=== PATIENT | female | born 1965 | race Caucasian/White ===

== ENCOUNTER 2017-11-18 22:29 | Inpatient (IN) | payer MEDICAID ==
[~2017-11-18] VITALS: Ht 162.6 cm; Wt 66.4 kg
[2017-11-18] MEDS ORDERED: ALBUTEROL SUL 2.5 MG/3 ML SOLN INH (22:41)
--- NOTE | 2017-11-18 22:46 | NUR ---
DR. MULLER AT BEDSIDE FOR MSE.
[2017-11-18] MEDS ORDERED: MORPHINE SULFATE 4 MG/1 ML DISP.SYRIN ONE (22:52)
[2017-11-18] MEDS ORDERED: ONDANSETRON 4 MG/2 ML VIAL ONE (22:52)
[2017-11-18] MEDS ORDERED: MORPHINE SULFATE 4 MG/1 ML DISP.SYRIN IM ONE (23:00)
[2017-11-18] MEDS ORDERED: ONDANSETRON IV *ER 4 MG/2 ML VIAL IM ONE (23:00)
[2017-11-19] MEDS ORDERED: MORPHINE SULFATE 2 MG/1 ML DISP.SYRIN IV ONE
[2017-11-19] MEDS ORDERED: IV NORMAL SALINE 1000 ML BAG IV ONE
[2017-11-19] MEDS ORDERED: ONDANSETRON 4 MG/2 ML VIAL IV ONE
[2017-11-19 00:23] LABS: BASOPHILS # (AUTO) 0.1 K/uL (0.0-8.0); BASOPHILS % (AUTO) 1.1 % (0.0-2.0); EOSINOPHILS # (AUTO) 0.5 K/uL (0.0-0.7); EOSINOPHILS % (AUTO) 5.1 % (0.0-7.0); HEMATOCRIT 42.7 % (31.2-41.9); HEMOGLOBIN 14.1 g/dL (10.9-14.3); LYMPHOCYTES % (AUTO) 21.9 % (20.5-51.5); MEAN CORPUSCULAR HEMOGLOBIN 29.2 uug (24.7-32.8); MEAN CORPUSCULAR HGB CONC 33 g/dL (32.3-35.6); MEAN CORPUSCULAR VOLUME 88.5 fL (75.5-95.3); MONOCYTES % (AUTO) 10.6 % (0.0-11.0); NEUTROPHILS # (AUTO) 5.7 K/uL (1.8-8.9); NEUTROPHILS % (AUTO) 61.3 % (38.5-71.5); PLATELET COUNT (AUTO) 211 K/uL (179-408); RED BLOOD CELL COUNT(AUTO) 4.83 MIL/uL (3.63-4.92); WHITE BLOOD COUNT (AUTO) 9.2 K/uL (3.8-11.8)
[2017-11-19] MEDS ORDERED: MORPHINE SULFATE 4 MG/1 ML DISP.SYRIN ONE (00:23)
[2017-11-19] MEDS ORDERED: ONDANSETRON 4 MG/2 ML VIAL ONE (00:23)
[2017-11-19 00:41] LABS: BILIRUBIN,DIRECT 0.1 mg/dL (0.0-0.2); BILIRUBIN,TOTAL 0.4 mg/dL (0.2-1.0); CREATININE 0.7 mg/dL (0.6-1.3); POTASSIUM 4.1 mmol/L (3.5-5.1); TOTAL PROTEIN, SERUM 6.9 g/dL (6.4-8.2)
--- NOTE | 2017-11-19 01:30 | NUR ---
Pt. admitted to m/s , under care of Dr. BLANCO Belongs List completed.
[2017-11-19 01:37] VITALS: BP 137/76
--- NOTE | 2017-11-19 02:00 | NUR ---
Received pt in unit and observed to be sleeping at this time, pt remains arousable via tactile and verbal stimuli. No s/s of acute distress noted at this time. Rectal prolapse observed to have mild bleeding, light pink color noted. Vital signs WNL. Temperature 98.0, BP 137/76, HR 97, RR 18, 96% SpO2 with 2L NC. Pertinent assessments done. paged for orders. Safe environment implemented. Call light within reach. Will continue to monitor closely.
[2017-11-19 04:52] VITALS: BP 123/83
[2017-11-19] MEDS ORDERED: IV NS 1000 ML 1,000 ML IV PRN (06:10)
[2017-11-19] MEDS ORDERED: ONDANSETRON 4 MG/2 ML VIAL IV PRN (06:15)
[2017-11-19] MEDS ORDERED: ACETAMINOPHEN 325 MG TABLET PO PRN (06:15)
[2017-11-19] MEDS ORDERED: MAGNESIUM HYDROXIDE 30 ML LIQUID UDC PO PRN (06:15)
[2017-11-19] MEDS ORDERED: ZOLPIDEM 5 MG TABLET PO PRN (06:15)
[2017-11-19] MEDS ORDERED: Z GUARD REMEDY PASTE 57 GM TUBE TOP PRN (06:15)
[2017-11-19] MEDS ORDERED: HYDROMORPHONE 1 MG/1 ML DISP.SYRIN IV PRN ×2 (06:15→07:45)
--- NOTE | 2017-11-19 06:30 | NUR ---
Pt made aware of plan of care. No s/s of acute distress at this time. AAO x4. Remains easily arousable via tactile and verbal stimuli. Will endorse accordingly. Safe environment at all times
[2017-11-19 06:48] LABS: BASOPHILS % (AUTO) 0.7 % (0.0-2.0); EOSINOPHILS # (AUTO) 0.5 K/uL (0.0-0.7); EOSINOPHILS % (AUTO) 6.4 % (0.0-7.0); HEMATOCRIT 41.5 % (31.2-41.9); HEMOGLOBIN 13.7 g/dL (10.9-14.3); LYMPHOCYTES # (AUTO) 1.6 K/uL (20.0-40.0); LYMPHOCYTES % (AUTO) 22.9 % (20.5-51.5); MEAN CORPUSCULAR HEMOGLOBIN 29.4 uug (24.7-32.8); MEAN CORPUSCULAR HGB CONC 33 g/dL (32.3-35.6); MEAN CORPUSCULAR VOLUME 89.6 fL (75.5-95.3); MONOCYTES # (AUTO) 0.8 K/uL (2.0-10.0); NEUTROPHILS # (AUTO) 4.2 K/uL (1.8-8.9); PLATELET COUNT (AUTO) 196 K/uL (179-408); RED BLOOD CELL COUNT(AUTO) 4.64 MIL/uL (3.63-4.92); WHITE BLOOD COUNT (AUTO) 7.1 K/uL (3.8-11.8)
[2017-11-19 07:02] LABS: BILIRUBIN,TOTAL 0.6 mg/dL (0.2-1.0); CREATININE 0.6 mg/dL (0.6-1.3); POTASSIUM 4.4 mmol/L (3.5-5.1); TOTAL PROTEIN, SERUM 5.9 g/dL (6.4-8.2)
--- NOTE | 2017-11-19 11:35 | NUR ---
Staff informed RN regarding patient smoking in the room. Patient informed regarding non-smoking facility, pt verbalized understanding. Patient surrendered opened cigarette pack but refused to turn over cigarette talend etl developer stating "it is a special talend etl developer and was given to me as a gift, I will be very upset if it gets lost". Explained to the patient that her talend etl developer and cigarette pack will be kept in a locker and will be given back to her upon discharge. Patient verbalized understanding but refuses to turn over her talend etl developer. Will continue to monitor. Safety measures in place.
[2017-11-19 11:36] VITALS: BP 141/84
--- NOTE | 2017-11-19 11:45 | NUR ---
Patient teachings regarding smoking cessation provided, patient verbalized understanding, need reinforcement and motivation.
[2017-11-19 12:05] LABS: *BILIRUBIN,URIN NEGATIVE (NEGATIVE); *BLOOD, URINE Trace-lysed (NEGATIVE); *CLARITY,URINE CLEAR (CLEAR); *COLOR,URINE YELLOW (YELLOW); *KETONES,URINE NEGATIVE (NEGATIVE); *PROTEIN,URINE NEGATIVE (NEGATIVE); *UROBILINOGEN,URINE 0.2 E.U./dl (NORMAL); LEUKOCYTE ESTERASE ,URINE 2+ (NEGATIVE); NITRITE, URINE NEGATIVE (NEGATIVE); PH,URINE 5.5 (5.0-8.0); UGLUCOSE NEGATIVE (NEGATIVE)
[2017-11-19 12:37] LABS: BACTERIA,URINE FEW /HPF (NONE SEEN); MUCUS,URINE MODERATE /LPF (0-FEW); SQUAMOUS EPITHELIAL CELL,UR FEW /HPF (NONE SEEN)
[2017-11-19] MEDS ORDERED: IPRATROPIUM BROMIDE 0.5 MG/2.5 ML NEBU NEB PRN (14:15)
[2017-11-19] MEDS ORDERED: ALBUTEROL SULFATE 2.5 MG/3 ML NEBU NEB PRN (14:15)
[2017-11-19] MEDS: IV D5/ 0.9% NACL 1,000 ML IV PRN (15:11)
[2017-11-19] MEDS: NICOTINE 14 MG/24HR PATCH TD SCH (15:11)
[2017-11-19] MEDS: CEFTRIAXONE 1 G in IV DEXTROSE 5% 50 ML IV SCH (15:19)
--- NOTE | 2017-11-19 15:30 | NUR ---
Swab nares for MRSA sent to lab.
[2017-11-19 15:45] VITALS: BP 143/84
--- NOTE | 2017-11-19 18:03 | NUR ---
Patient mostly asleep throughout the shift, easily arousable, in no distress. Mass protruding through the patient's anus, no bleeding or ulcer noted. Patient no c/o of pain, SOB. Patient remains NPO as ordered. IVF running, no infiltration noted. IV antibiotics administered as ordered, no adverse reaction. Safety measures in place.
--- NOTE | 2017-11-19 20:00 | NUR ---
Observed to be crying in room and complaining of dry mouth. Pt provided with relaxation techniques, cooling measures and lemon glycerine swab. No s/s of acute distress noted at this time. Keep NPO. Will continue to monitor closely.
[2017-11-19 20:04] VITALS: BP 131/83
[2017-11-19] MEDS: MORPHINE SULFATE 2 MG/1 ML DISP.SYRIN IV PRN (23:55)
[2017-11-20] MEDS: IV D5/ 0.9% NACL 1,000 ML IV PRN ×2 (01:54→12:15)
--- NOTE | 2017-11-20 03:20 | NUR ---
DR CARERRA IN ROOM FOR CONSULT AT THIS TIME RECEIVED ORDERS TO ADVANCE DIET TO CLEAR LIQUIDS
[2017-11-20] MEDS ORDERED: SENNOSIDES/DOCUSATE SODIUM TABLET PO PRN (04:00)
--- NOTE | 2017-11-20 04:15 | NUR ---
Received pt lying in bed, asleep at this time. In no acute distress. No signs or symptoms of pain or discomfort noted. Continue to monitor.
[2017-11-20 04:36] VITALS: BP 120/81
[2017-11-20] MEDS: MORPHINE SULFATE 2 MG/1 ML DISP.SYRIN IV PRN ×4 (05:01→21:23)
--- NOTE | 2017-11-20 06:16 | NUR ---
PATIENT AOX4. MORPHINE PRN GIVEN FOR COMPLAIN OF RECTAL PAIN AND EFFECTIVE. O2 AT 2LPM VIA NC IN PLACE. O2 SAT AT 96%. OCCASIONAL PRODUCTIVE COUGH AND ABLE TO EXPECTORATE PHLEGM. IN NO ACUTE DISTRESS. IV SITE ON LFA INTACT AND PATENT. IVF INFUSING. SAFETY MEASURE MAINTAINED AND CALL [facility] WITHIN REACH.
[2017-11-20 06:40] LABS: BASOPHILS % (AUTO) 0.8 % (0.0-2.0); EOSINOPHILS # (AUTO) 0.3 K/uL (0.0-0.7); EOSINOPHILS % (AUTO) 4.7 % (0.0-7.0); HEMATOCRIT 39.1 % (31.2-41.9); LYMPHOCYTES # (AUTO) 1.2 K/uL (20.0-40.0); LYMPHOCYTES % (AUTO) 20.3 % (20.5-51.5); MEAN CORPUSCULAR HEMOGLOBIN 29.3 uug (24.7-32.8); MEAN CORPUSCULAR HGB CONC 33 g/dL (32.3-35.6); MEAN CORPUSCULAR VOLUME 88.4 fL (75.5-95.3); MONOCYTES # (AUTO) 0.6 K/uL (2.0-10.0); MONOCYTES % (AUTO) 10.5 % (0.0-11.0); NEUTROPHILS # (AUTO) 3.8 K/uL (1.8-8.9); NEUTROPHILS % (AUTO) 63.7 % (38.5-71.5); PLATELET COUNT (AUTO) 172 K/uL (179-408); RED BLOOD CELL COUNT(AUTO) 4.42 MIL/uL (3.63-4.92); WHITE BLOOD COUNT (AUTO) 5.9 K/uL (3.8-11.8)
[2017-11-20 06:49] LABS: CREATININE 0.6 mg/dL (0.6-1.3); MAGNESIUM 2.1 mg/dL (1.8-2.4); PHOSPHOROUS 3.6 mg/dL (2.5-4.9); POTASSIUM 3.8 mmol/L (3.5-5.1)
[2017-11-20 07:20] LABS: THYROID STIMULATING HORMONE 1.038 mIU/mL (0.358-3.740)
[2017-11-20] MEDS ORDERED: GOLYTELY 4000 ML BOTTLE PO ONE (08:00)
[2017-11-20] MEDS: PANTOPRAZOLE SODIUM 40 MG VIAL IV SCH (08:23)
[2017-11-20] MEDS: NICOTINE 14 MG/24HR PATCH TD SCH (08:23)
[2017-11-20] MEDS: HYDROCODONE/APAP 5-325MG TABLET PO PRN ×2 (08:27→18:34)
--- NOTE | 2017-11-20 11:39 | NUR ---
Unable to place orders for Epsom salt, informed charge nurse and Pharmacists. Orders for sitz bath with Epsom salt not carried out due to Epsom salt needs to be ordered by pharmacy and will arrive tomorrow. Spoke with Pharmacist and was advised to call MD and suggest a sitz bath without Epsom salt for today and continue with original orders tomorrow. Message was left at the office of Dr Desean Doran. Portable sitz bath from [place] arrived and placed in the pt's room
[2017-11-20 11:45] VITALS: BP 128/75
[2017-11-20] MEDS: CEFTRIAXONE 1 G in IV DEXTROSE 5% 50 ML IV SCH (14:00)
--- NOTE | 2017-11-20 15:10 | NUR ---
Sitz bath as tolerated by the pt done, salt placed on hemorrhoids. Pt states she has not had the urge for BM today.
--- NOTE | 2017-11-20 15:22 | NUR ---
Second called placed to Dr. Anton to verify orders for Epsom salt tomorrow, pharmacy needs to place orders
[2017-11-20 15:50] VITALS: BP 128/77
--- NOTE | 2017-11-20 15:59 | NUR ---
Dr Anton called back and verified orders for Epsom salt to be ordered by pharmacy. Pharmacist aware and will order Epsom salt. Pharmacist aware of being unable to place orders for Epsom salt and she will try to order it, TO
[2017-11-20] MEDS: HYDROCORTISONE 2.5 % RECTAL CREAM 28.35 GM TUBE RC SCH (18:27)
--- NOTE | 2017-11-20 19:08 | NUR ---
Pt has been compliant with medications and nursing care. No immediate s/s of SOB, pain, distress or discomfort
[2017-11-20 20:00] VITALS: BP 131/84
--- NOTE | 2017-11-20 20:00 | NUR ---
PATIENT IS AWAKE IN BED AAOX3, DENIES PAIN OR ANY DISTRESS AT PRESENT, SAFETY AND COMFORT MEASURES IN PLACE, CALL LIGHT LEFT WITHIN PATIENT'S REACH.
[2017-11-21] MEDS: IV D5/ 0.9% NACL 1,000 ML IV PRN ×2 (02:00→14:16)
[2017-11-21] MEDS: MORPHINE SULFATE 2 MG/1 ML DISP.SYRIN IV PRN ×3 (02:58→13:03)
[2017-11-21 05:09] VITALS: BP 149/89
--- NOTE | 2017-11-21 06:39 | NUR ---
PATIENT SLEPT WELL THROUGH THE SHIFT, NO ACUTE DISTRESS OR C/O PAIN AT PRESENT. PAIN MEDS GIVEN REQUESTED BY PATIENT. PATIENT KEPT COMFORTABLE. SAFETY MEASURES MAINTAINED AT ALL TIMES
[2017-11-21 06:58] LABS: BASOPHILS # (AUTO) 0.1 K/uL (0.0-8.0); BASOPHILS % (AUTO) 0.9 % (0.0-2.0); EOSINOPHILS # (AUTO) 0.4 K/uL (0.0-0.7); EOSINOPHILS % (AUTO) 5.6 % (0.0-7.0); HEMATOCRIT 41.4 % (31.2-41.9); HEMOGLOBIN 13.7 g/dL (10.9-14.3); LYMPHOCYTES # (AUTO) 1.6 K/uL (20.0-40.0); LYMPHOCYTES % (AUTO) 23.9 % (20.5-51.5); MEAN CORPUSCULAR HEMOGLOBIN 29.1 uug (24.7-32.8); MEAN CORPUSCULAR HGB CONC 33 g/dL (32.3-35.6); MEAN CORPUSCULAR VOLUME 88.1 fL (75.5-95.3); MONOCYTES # (AUTO) 0.6 K/uL (2.0-10.0); MONOCYTES % (AUTO) 8.9 % (0.0-11.0); NEUTROPHILS % (AUTO) 60.7 % (38.5-71.5); PLATELET COUNT (AUTO) 153 K/uL (179-408); WHITE BLOOD COUNT (AUTO) 6.6 K/uL (3.8-11.8)
[2017-11-21 07:08] LABS: BILIRUBIN,TOTAL 0.3 mg/dL (0.2-1.0); CREATININE 0.5 mg/dL (0.6-1.3); MAGNESIUM 1.8 mg/dL (1.8-2.4); POTASSIUM 3.7 mmol/L (3.5-5.1); TOTAL PROTEIN, SERUM 5.9 g/dL (6.4-8.2)
--- NOTE | 2017-11-21 07:41 | NUR ---
RECEIVED PT ASLEEP ON BED. NO SIGNS OF RESPIRATORY DISTRESS NOTED. SAFETY MEASURE INITIATED. WILL CONTINUE TO MONITOR
[2017-11-21] MEDS: NICOTINE 14 MG/24HR PATCH TD SCH (08:39)
[2017-11-21] MEDS: PANTOPRAZOLE SODIUM 40 MG VIAL IV SCH (08:39)
[2017-11-21] MEDS: HYDROCORTISONE 2.5 % RECTAL CREAM 28.35 GM TUBE RC SCH (08:40)
[2017-11-21] MEDS ORDERED: MAGNESIUM SULFATE 454 GM JAR TP PRN (11:00)
[2017-11-21 11:03] VITALS: BP 139/88
[2017-11-21] MEDS ORDERED: MIRALAX 17 GM POWD.PACK PO SCH (14:00)
[2017-11-21] MEDS: CEFTRIAXONE 1 G in IV DEXTROSE 5% 50 ML IV SCH (14:19)
[2017-11-21 15:13] VITALS: BP 143/98
--- NOTE | 2017-11-21 15:45 | NUR ---
Pt. left AMA notified Marcel ELOY aware. . Pt signed AMA. Pt is in no acute distress. Belongings and valuables given to pt. PT signed valuable form. IV d/c. Offered pt to have her medical records sent to her PMD. pt states she does not have one. Instructed pt. to establish medical care and follow up with primary doctor KARMA and . Pt verbalized understanding.
[2017-11-22] MEDS ORDERED: PANTOPRAZOLE SODIUM 40 MG TABLET.DR PO SCH (07:00)
== END 2017-11-21 15:45 | disposition left against medical advice (07) | DRG 254 ==
LOC: ER 22:30 → MED 11-19 00:57
PROVIDERS: ADMIT Internal Medicine; ATTEND Nurse Practitioner Acute Care
DX: K62.3 Rectal prolapse (principal); D69.6 Thrombocytopenia, unspecified; E27.8 Other specified disorders of adrenal gland; K85.20 Alcohol induced acute pancreatitis without necrosis or infection; E44.1 Mild protein-calorie malnutrition; E88.09 Other disorders of plasma-protein metabolism, not elsewhere classified; K64.3 Fourth degree hemorrhoids; K59.00 Constipation, unspecified; E83.42 Hypomagnesemia; N39.0 Urinary tract infection, site not specified; Z68.25 Body mass index [BMI] 25.0-25.9, adult; E83.39 Other disorders of phosphorus metabolism; K57.30 Diverticulosis of large intestine without perforation or abscess without bleeding; Z90.81 Acquired absence of spleen; K44.9 Diaphragmatic hernia without obstruction or gangrene; K40.90 Unilateral inguinal hernia, without obstruction or gangrene, not specified as recurrent; F10.10 Alcohol abuse, uncomplicated; Y90.9 Presence of alcohol in blood, level not specified; F17.210 Nicotine dependence, cigarettes, uncomplicated
CPT/HCPCS: 36415; 71045; 83690; 83735; 84100; 84443; 85025; 87086; 93005; 94664; A4663; C9113; J0696; J2270; J2405; J3590; J7030; J7042; J7060

== ENCOUNTER 2018-05-20 03:56 | Emergency (ER) | payer MEDICAID, OTHER ==
[~2018-05-20] VITALS: Ht 162.6 cm; Wt 63.5 kg
[~2018-05-20 03:56] MED LIST: ALBUTEROL SUL 2.5 MG/3 ML SOLN INH
--- NOTE | 2018-05-20 04:22 | NUR ---
Patient discharged to home in stable conditon. Written and verbal after care instructions given. Patient verbalizes understanding of instructions.
== END 2018-05-20 04:23 | disposition home or self-care (01) ==
LOC: ER 03:58
DX: J06.9 Acute upper respiratory infection, unspecified (principal); J45.909 Unspecified asthma, uncomplicated; F17.200 Nicotine dependence, unspecified, uncomplicated; F12.10 Cannabis abuse, uncomplicated; F15.10 Other stimulant abuse, uncomplicated; Z79.899 Other long term (current) drug therapy
CPT/HCPCS: A4663

== ENCOUNTER 2018-10-15 00:20 | Emergency (ER) | payer SELFPAY ==
[~2018-10-15] VITALS: Ht 162.6 cm; Wt 65.8 kg
--- NOTE | 2018-10-15 00:30 | NUR ---
Patient came in for c/o sob x2 days with congestion. Speech is clear, speaks in complete sentences. No neuro deficits noted. Wheezing noted in all lobes. No cardiovascular distress noted, all pulses palpable. No GI/ distress.
[2018-10-15] MEDS ORDERED: ALBUTEROL SULFATE 2.5 MG/3 ML NEBU ONE (00:44)
[2018-10-15] MEDS ORDERED: IPRATROPIUM BROMIDE 0.5 MG/2.5 ML NEBU ONE (00:44)
[2018-10-15] MEDS ORDERED: IPRATROPIUM BROMIDE 0.5 MG/2.5 ML NEBU NEB ONE (00:45)
[2018-10-15] MEDS ORDERED: ALBUTEROL SULFATE 2.5 MG/3 ML NEBU NEB ONE (00:45)
--- NOTE | 2018-10-15 01:07 | NUR ---
Patient discharged to home in stable conditon. Written and verbal after care instructions given. Patient verbalizes understanding of instructions. Patient ambulated with stable gait.
[2018-10-15 01:08] VITALS: BP 135/85
== END 2018-10-15 01:08 | disposition home or self-care (01) ==
LOC: ER 00:22
DX: J98.01 Acute bronchospasm (principal); J45.909 Unspecified asthma, uncomplicated; F12.10 Cannabis abuse, uncomplicated; F15.10 Other stimulant abuse, uncomplicated; F17.200 Nicotine dependence, unspecified, uncomplicated; Z79.899 Other long term (current) drug therapy
CPT/HCPCS: A4663; J3590

== ENCOUNTER 2019-01-07 03:55 | Emergency (ER) | payer MEDICAID ==
[~2019-01-07] VITALS: Ht 162.6 cm; Wt 56.7 kg
[2019-01-07] MEDS ORDERED: ALBU18HF2 IH (04:05)
--- NOTE | 2019-01-07 04:08 | NUR ---
Dr. Collado at bedside for MSE.
--- NOTE | 2019-01-07 04:20 | NUR ---
Respiratory at bedside.
[2019-01-07] MEDS ORDERED: ALBUTEROL SULFATE 2.5 MG/3 ML NEBU ONE ×2 (04:24→05:43)
[2019-01-07] MEDS ORDERED: FUROSEMIDE 20 MG/2 ML VIAL IV ONE (04:30)
[2019-01-07] MEDS ORDERED: NITROGLYCERIN OINT 1 GM PACKET TP ONE ×2 (04:30→04:37)
[2019-01-07] MEDS ORDERED: ALBUTEROL SULFATE 2.5 MG/3 ML NEBU NEB ONE ×2 (04:30→05:45)
[2019-01-07] MEDS ORDERED: FUROSEMIDE 20 MG/2 ML VIAL ONE (04:37)
[2019-01-07 04:44] LABS: BASOPHILS # (AUTO) 0.1 K/uL (0.0-8.0); BASOPHILS % (AUTO) 1.3 % (0.0-2.0); EOSINOPHILS # (AUTO) 0.4 K/uL (0.0-0.7); EOSINOPHILS % (AUTO) 5.7 % (0.0-7.0); HEMATOCRIT 47.6 % (31.2-41.9); HEMOGLOBIN 16.3 g/dL (10.9-14.3); LYMPHOCYTES # (AUTO) 1.8 K/uL (20.0-40.0); LYMPHOCYTES % (AUTO) 25.8 % (20.5-51.5); MEAN CORPUSCULAR HEMOGLOBIN 29.5 uug (24.7-32.8); MEAN CORPUSCULAR HGB CONC 34 g/dL (32.3-35.6); MEAN CORPUSCULAR VOLUME 86.2 fL (75.5-95.3); MONOCYTES # (AUTO) 0.6 K/uL (2.0-10.0); MONOCYTES % (AUTO) 7.9 % (0.0-11.0); NEUTROPHILS # (AUTO) 4.2 K/uL (1.8-8.9); NEUTROPHILS % (AUTO) 59.3 % (38.5-71.5); PLATELET COUNT (AUTO) 246 K/uL (179-408); RED BLOOD CELL COUNT(AUTO) 5.52 MIL/uL (3.63-4.92)
[2019-01-07 04:53] LABS: CREATININE 0.9 mg/dL (0.6-1.3); POTASSIUM 4.4 mmol/L (3.5-5.1)
--- NOTE | 2019-01-07 04:55 | NUR ---
Xray at bedside.
--- NOTE | 2019-01-07 05:00 | NUR ---
After breathing treatment, patient's O2 sat 89% on room air. Patient states chest tightness is gone but feels very tired. MD notified. Placed patient on O2 2L/min via nasal cannula.
[2019-01-07 05:05] LABS: BILIRUBIN,DIRECT 0.1 mg/dL (0.0-0.2); BILIRUBIN,TOTAL 0.6 mg/dL (0.2-1.0); TOTAL PROTEIN, SERUM 7.6 g/dL (6.4-8.2)
--- NOTE | 2019-01-07 05:34 | NUR ---
Pt provided urine sample, sent to lab.
[2019-01-07] MEDS ORDERED: methylPREDNISolone SOD SUCC 125 MG/2 ML VIAL ONE (05:40)
[2019-01-07 05:41] LABS: *BILIRUBIN,URIN NEGATIVE (NEGATIVE); *BLOOD, URINE NEGATIVE (NEGATIVE); *CLARITY,URINE CLEAR (CLEAR); *COLOR,URINE STRAW (YELLOW); *KETONES,URINE NEGATIVE (NEGATIVE); *UROBILINOGEN,URINE 0.2 E.U./dl (NORMAL); LEUKOCYTE ESTERASE ,URINE NEGATIVE (NEGATIVE); NITRITE, URINE NEGATIVE (NEGATIVE); PH,URINE 6.5 (5.0-8.0); UGLUCOSE NEGATIVE (NEGATIVE)
[2019-01-07 05:42] LABS: *URINE HCG, QUAL NEGATIVE (NEGATIVE)
[2019-01-07] MEDS ORDERED: methylPREDNISolone SOD SUCC 125 MG/2 ML VIAL IV ONE (05:45)
[2019-01-07 05:53] LABS: *AMPHETAMINE, URINE POSITIVE (NEGATIVE); *BARBITURATE, URINE NEGATIVE (NEGATIVE); *CANNABINOID, URINE NEGATIVE (NEGATIVE); *COCCAINE, URINE NEGATIVE (NEGATIVE); *OPIATE, URINE NEGATIVE (NEGATIVE); *PHENCYCLIDINE SCREEN,URINE NEGATIVE (NEGATIVE)
--- NOTE | 2019-01-07 06:32 | NUR ---
Patient discharged to home in stable conditon. Written and verbal after care instructions given. Patient verbalizes understanding of instructions. Pt ambulated out of ER with steady gait, no acute signs of distress, VSS, all belongings taken, IV site discontinued.
[2019-01-07 06:34] VITALS: BP 145/96
== END 2019-01-07 06:40 | disposition home or self-care (01) ==
LOC: ER 03:57
DX: J45.909 Unspecified asthma, uncomplicated (principal); R60.9 Edema, unspecified; F15.10 Other stimulant abuse, uncomplicated; F12.10 Cannabis abuse, uncomplicated; F17.290 Nicotine dependence, other tobacco product, uncomplicated; Z71.6 Tobacco abuse counseling; Z79.899 Other long term (current) drug therapy
CPT/HCPCS: 36415; 71045; 80048; 80076; 80307; 81001; 83880; 84484; 84703; 85025; 85379; 93005; 94640 ×2; 96374; 96375; 99284; 99406; J1940; J2930; 70030-TC; A4663

== ENCOUNTER 2019-02-24 23:03 | Emergency (ER) | payer MEDICAID, OTHER ==
[~2019-02-24] VITALS: Ht 162.6 cm; Wt 61.2 kg
[~2019-02-24 23:03] MED LIST changes: +ALBU18HF2 IH
--- NOTE | 2019-02-24 23:35 | NUR ---
DR. SANDOVAL AT BEDSIDE FOR MSE.
[2019-02-24] MEDS ORDERED: ALBUTEROL SULFATE 2.5 MG/3 ML NEBU NEB ONE (23:45)
[2019-02-24] MEDS ORDERED: predniSONE 20 MG TABLET PO ONE (23:45)
[2019-02-24] MEDS ORDERED: IPRATROPIUM BROMIDE 0.5 MG/2.5 ML NEBU NEB ONE (23:45)
[2019-02-24] MEDS ORDERED: predniSONE 20 MG TABLET ONE (23:49)
[2019-02-24] MEDS ORDERED: IPRATROPIUM BROMIDE 0.5 MG/2.5 ML NEBU ONE (23:58)
[2019-02-24] MEDS ORDERED: ALBUTEROL SULFATE 2.5 MG/3 ML NEBU ONE (23:58)
[2019-02-25] MEDS ORDERED: PHEN-894 PO (01:12)
[2019-02-25] MEDS ORDERED: OXYB15TA18 PO (01:12)
[2019-02-25] MEDS ORDERED: DOCU100C36 PO (01:12)
[2019-02-25] MEDS ORDERED: ASPI-605 PO (01:12)
[2019-02-25] MEDS ORDERED: NAPR-1009 PO (01:12)
[2019-02-25] MEDS ORDERED: TRAZ-182 PO (01:12)
--- NOTE | 2019-02-25 01:37 | NUR ---
Patient discharged to home in stable conditon. Written and verbal after care instructions given. Patient verbalizes understanding of instructions. Walked out of ER with no distress noted.
[2019-02-25 01:38] VITALS: BP 130/85
== END 2019-02-25 01:40 | disposition home or self-care (01) ==
LOC: ER 23:04
DX: J45.901 Unspecified asthma with (acute) exacerbation (principal); J06.9 Acute upper respiratory infection, unspecified; R60.9 Edema, unspecified; F17.200 Nicotine dependence, unspecified, uncomplicated; F12.10 Cannabis abuse, uncomplicated; F15.10 Other stimulant abuse, uncomplicated; Z79.82 Long term (current) use of aspirin; Z79.899 Other long term (current) drug therapy
CPT/HCPCS: 36415; 71045; 85379; 94644; 99285; J7512; A4663; J3590

== ENCOUNTER 2019-03-01 14:35 | Emergency (ER) | payer OTHER ==
[~2019-03-01] VITALS: Ht 162.6 cm; Wt 61.2 kg
[~2019-03-01 14:35] MED LIST changes: -ALBU18HF2 IH; -ALBUTEROL SUL 2.5 MG/3 ML SOLN INH; +ASPI-605 PO; +DOCU100C36 PO; +NAPR-1009 PO; +OXYB15TA PO; +PHEN-894 PO; +TRAZ-182 PO
--- NOTE | 2019-03-01 15:24 | NUR ---
PATIENT WAS SEEN BY . DC, RX AND FOLLOW UP INSTRUCTIONS GIVEN AND EXPLAINED TO PATIENT WHO STATES SHE UNDERSTANDS ALL INSTRUCTIONS.
== END 2019-03-01 15:29 | disposition home or self-care (01) ==
LOC: ER 14:35
DX: R05 Cough (principal); J45.909 Unspecified asthma, uncomplicated; F17.200 Nicotine dependence, unspecified, uncomplicated; F12.10 Cannabis abuse, uncomplicated; F15.10 Other stimulant abuse, uncomplicated; Z76.0 Encounter for issue of repeat prescription; Z79.82 Long term (current) use of aspirin; Z79.1 Long term (current) use of non-steroidal anti-inflammatories (NSAID); Z79.899 Other long term (current) drug therapy
CPT/HCPCS: A4663

== ENCOUNTER 2019-03-06 22:11 | Emergency (ER) | payer OTHER ==
[~2019-03-06] VITALS: Ht 162.6 cm; Wt 61.2 kg
[2019-03-06] MEDS ORDERED: IPRATROPIUM BROMIDE 0.5 MG/2.5 ML NEBU NEB ONE (22:45)
[2019-03-06] MEDS ORDERED: predniSONE 10 MG TABLET PO ONE (22:45)
[2019-03-06] MEDS ORDERED: ALBUTEROL SULFATE 2.5 MG/3 ML NEBU NEB ONE (22:45)
[2019-03-06] MEDS ORDERED: CLINDAMYCIN HCL 150 MG CAPSULE PO ONE (22:45)
[2019-03-06] MEDS ORDERED: predniSONE 20 MG TABLET ONE (22:47)
[2019-03-06] MEDS ORDERED: CLINDAMYCIN HCL 300 MG CAPSULE ONE (22:47)
[2019-03-06] MEDS ORDERED: IPRATROPIUM BROMIDE 0.5 MG/2.5 ML NEBU ONE (22:49)
[2019-03-06] MEDS ORDERED: ALBUTEROL SULFATE 2.5 MG/3 ML NEBU ONE (22:49)
--- NOTE | 2019-03-06 23:10 | NUR ---
Patient discharged to home in stable conditon. Written and verbal after care instructions given. Patient verbalizes understanding of instructions. Pt ambulated out of ER in stable gait. Appears in no apparent distress. Vital signs stable. Respiration even + unlabored. Pt states she feels better.
[2019-03-06 23:11] VITALS: BP 138/86
== END 2019-03-06 23:11 | disposition home or self-care (01) ==
LOC: ER 22:13
DX: J40 Bronchitis, not specified as acute or chronic (principal); K04.7 Periapical abscess without sinus; J45.909 Unspecified asthma, uncomplicated; F17.210 Nicotine dependence, cigarettes, uncomplicated; F12.10 Cannabis abuse, uncomplicated; F15.10 Other stimulant abuse, uncomplicated; Z71.6 Tobacco abuse counseling; Z79.1 Long term (current) use of non-steroidal anti-inflammatories (NSAID); Z79.82 Long term (current) use of aspirin; Z79.899 Other long term (current) drug therapy
CPT/HCPCS: 94640; 99283; 99406; J7512; A4663; J3590

== ENCOUNTER 2019-04-19 14:03 | Emergency (ER) | payer OTHER ==
[~2019-04-19] VITALS: Ht 162.6 cm; Wt 61.2 kg
[~2019-04-19 14:03] MED LIST changes: -OXYB15TA PO; +OXYB15TA18 PO
--- NOTE | 2019-04-19 14:16 | NUR ---
PT IS A/OX4, PRESENTS TO THE ER C/O SOB AND STATES SHE "RAN OUT OF HER INHALER". SPO2 91% ON RA, SUPPLEMENTAL O2 ADMIN AT 2 LPM VIA N/C SPO2 NOW 95%. BREATHING EVEN AND UNLABORED AT THIS TIME. VSS. PT DENIES C/P, N/V/D, DIZZINESS, HEADACHE.
[2019-04-19] MEDS ORDERED: ALBUTEROL SULFATE 2.5 MG/3 ML NEBU ONE (14:27)
[2019-04-19] MEDS ORDERED: IPRATROPIUM BROMIDE 0.5 MG/2.5 ML NEBU ONE (14:27)
[2019-04-19] MEDS ORDERED: methylPREDNISolone SOD SUCC 125 MG/2 ML VIAL IV ONE (14:45)
[2019-04-19] MEDS ORDERED: IPRATROPIUM BROMIDE 0.5 MG/2.5 ML NEBU NEB ONE (14:45)
[2019-04-19] MEDS ORDERED: ALBUTEROL SULFATE 2.5 MG/3 ML NEBU NEB ONE (14:45)
[2019-04-19] MEDS ORDERED: methylPREDNISolone SOD SUCC 125 MG/2 ML VIAL ONE (15:02)
[2019-04-19 15:39] LABS: BASOPHILS # (AUTO) 0.1 K/uL (0.0-8.0); BASOPHILS % (AUTO) 1.2 % (0.0-2.0); EOSINOPHILS # (AUTO) 0.3 K/uL (0.0-0.7); EOSINOPHILS % (AUTO) 5.5 % (0.0-7.0); HEMATOCRIT 44.7 % (31.2-41.9); HEMOGLOBIN 14.6 g/dL (10.9-14.3); LYMPHOCYTES # (AUTO) 1.8 K/uL (20.0-40.0); LYMPHOCYTES % (AUTO) 33.1 % (20.5-51.5); MEAN CORPUSCULAR HGB CONC 33 g/dL (32.3-35.6); MEAN CORPUSCULAR VOLUME 91.9 fL (75.5-95.3); MONOCYTES # (AUTO) 0.9 K/uL (2.0-10.0); MONOCYTES % (AUTO) 16.6 % (0.0-11.0); NEUTROPHILS # (AUTO) 2.4 K/uL (1.8-8.9); NEUTROPHILS % (AUTO) 43.6 % (38.5-71.5); PLATELET COUNT (AUTO) 201 K/uL (179-408); RED BLOOD CELL COUNT(AUTO) 4.86 MIL/uL (3.63-4.92); WHITE BLOOD COUNT (AUTO) 5.5 K/uL (3.8-11.8)
[2019-04-19 15:46] LABS: CARBON DIOXIDE 28 mmol/L (21-32); CHLORIDE 108 mmol/L (98-107); CREATININE 0.7 mg/dL (0.6-1.3); GLUCOSE 102 mg/dL (74-106); POTASSIUM 4.1 mmol/L (3.5-5.1); UREA NITROGEN, BLOOD 15 mg/dL (7-18)
[2019-04-19 16:00] LABS: ALANINE AMINOTRANSFERASE 30 U/L (14-59); ALKALINE PHOSPHATASE 84 U/L (50-136); ASPARTATE AMINOTRANSFERASE 22 U/L (15-37); BILIRUBIN,DIRECT < 0.1 mg/dL (0.0-0.2); BILIRUBIN,TOTAL 0.2 mg/dL (0.2-1.0); TOTAL PROTEIN, SERUM 6.7 g/dL (6.4-8.2)
[2019-04-19] MEDS ORDERED: SULFAMETH/TRIMETH 800/160 MG TABLET PO ONE (16:15)
[2019-04-19] MEDS ORDERED: SULFAMETH/TRIMETH 800/160 MG TABLET ONE (16:22)
[2019-04-19 16:30] LABS: EOSINOPHILS % (MANUAL) 1 % (0-8); LYMPHOCYTES % (MANUAL) 24 % (20-40); MONOCYTES % (MANUAL) 7 % (2-10); NEUTROPHILS % (MANUAL) 68 % (42-75)
--- NOTE | 2019-04-19 16:39 | NUR ---
Patient discharged to home in stable conditon. Written and verbal after care instructions given. Patient verbalizes understanding of instructions. ALL BELONGINGS W/ PT. PT SELF-AMBULATED W/O DIFFICULTY. 18G IV ACCESS IN RFA REMOVED PRIOR TO D/C - INNER CANNULA INTACT.
[2019-04-19 16:40] VITALS: BP 136/82
== END 2019-04-19 16:40 | disposition home or self-care (01) ==
LOC: ER 14:03
DX: J44.1 Chronic obstructive pulmonary disease with (acute) exacerbation (principal); L03.115 Cellulitis of right lower limb; R60.9 Edema, unspecified; F17.210 Nicotine dependence, cigarettes, uncomplicated; F12.10 Cannabis abuse, uncomplicated; F15.10 Other stimulant abuse, uncomplicated; Z79.82 Long term (current) use of aspirin; Z79.899 Other long term (current) drug therapy
CPT/HCPCS: 36415; 71045; 80048; 80076; 83880; 84443; 84484; 85007; 85025; 93005; 94644; 96374; 99285; J2930; 70030-TC; A4663; J3590

== ENCOUNTER 2019-05-01 02:06 | Emergency (ER) | payer OTHER ==
[~2019-05-01] VITALS: Ht 162.6 cm; Wt 61.2 kg
[2019-05-01] MEDS ORDERED: IPRATROPIUM BROMIDE 0.5 MG/2.5 ML NEBU NEB ONE (02:30)
[2019-05-01] MEDS ORDERED: ALBUTEROL SULFATE 2.5 MG/3 ML NEBU NEB ONE (02:30)
[2019-05-01] MEDS ORDERED: ALBUTEROL SULFATE 2.5 MG/3 ML NEBU ONE (02:31)
[2019-05-01] MEDS ORDERED: IPRATROPIUM BROMIDE 0.5 MG/2.5 ML NEBU ONE (02:32)
--- NOTE | 2019-05-01 03:19 | NUR ---
Patient discharged to home in stable conditon. Written and verbal after care instructions given. Patient verbalizes understanding of instructions. walked out of Er with no distress noted.
[2019-05-01 03:22] VITALS: BP 128/90
== END 2019-05-01 03:23 | disposition home or self-care (01) ==
LOC: ER 02:08
DX: J45.901 Unspecified asthma with (acute) exacerbation (principal); R60.9 Edema, unspecified; L03.115 Cellulitis of right lower limb; L03.116 Cellulitis of left lower limb; F12.10 Cannabis abuse, uncomplicated; F15.10 Other stimulant abuse, uncomplicated; F17.200 Nicotine dependence, unspecified, uncomplicated; Z79.82 Long term (current) use of aspirin; Z79.1 Long term (current) use of non-steroidal anti-inflammatories (NSAID); Z79.899 Other long term (current) drug therapy
CPT/HCPCS: A4663; J3590

== ENCOUNTER 2019-06-07 08:20 | Emergency (ER) | payer OTHER ==
[~2019-06-07] VITALS: Ht 162.6 cm; Wt 61.2 kg
[~2019-06-07 08:20] MED LIST changes: -OXYB15TA18 PO; +OXYB15TA19 PO
[2019-06-07] MEDS ORDERED: BENZONATATE 100 MG CAPSULE ONE (09:00)
[2019-06-07] MEDS ORDERED: IBUPROFEN 400 MG TABLET ONE (09:00)
[2019-06-07] MEDS ORDERED: IBUPROFEN 400 MG TABLET PO ONE (09:00)
[2019-06-07] MEDS ORDERED: IPRATROPIUM BROMIDE 0.5 MG/2.5 ML NEBU NEB ONE (09:00)
[2019-06-07] MEDS ORDERED: BENZONATATE 100 MG CAPSULE PO ONE (09:00)
[2019-06-07] MEDS ORDERED: ALBUTEROL SULFATE 2.5 MG/3 ML NEBU NEB ONE ×2 (09:00→09:30)
[2019-06-07] MEDS ORDERED: IPRATROPIUM BROMIDE 0.5 MG/2.5 ML NEBU ONE (09:02)
[2019-06-07] MEDS ORDERED: ALBUTEROL SULFATE 2.5 MG/ 0.5 ML NEBU ONE (09:02)
[2019-06-07] MEDS ORDERED: ALBUTEROL SULFATE 2.5 MG/3 ML NEBU ONE (09:30)
--- NOTE | 2019-06-07 10:22 | NUR ---
Patient discharged to home in stable conditon. Written and verbal after care instructions given. Patient verbalizes understanding of instructions.pt walks in steady gait. pt says feels better, breathing normally. ra sat 97%.
[2019-06-07 10:25] VITALS: BP 131/88
== END 2019-06-07 10:26 | disposition home or self-care (01) ==
LOC: ER 08:20
DX: J44.1 Chronic obstructive pulmonary disease with (acute) exacerbation (principal); J20.9 Acute bronchitis, unspecified; F17.210 Nicotine dependence, cigarettes, uncomplicated; F15.10 Other stimulant abuse, uncomplicated; F12.10 Cannabis abuse, uncomplicated; Z79.82 Long term (current) use of aspirin; Z79.899 Other long term (current) drug therapy
CPT/HCPCS: 71045; A4663; J3590

== ENCOUNTER 2019-07-09 20:50 | Emergency (ER) | payer OTHER ==
[~2019-07-09] VITALS: Ht 162.6 cm; Wt 61.2 kg
--- NOTE | 2019-07-09 21:59 | NUR ---
Dr. Barber at bedside for MSE.
[2019-07-09] MEDS ORDERED: ALBUTEROL SULFATE 2.5 MG/3 ML NEBU ONE (22:14)
[2019-07-09] MEDS ORDERED: ALBUTEROL SULFATE 2.5 MG/3 ML NEBU NEB ONE (22:15)
[2019-07-09] MEDS ORDERED: IPRATROPIUM BROMIDE 0.5 MG/2.5 ML NEBU NEB ONE (22:15)
[2019-07-09] MEDS ORDERED: IPRATROPIUM BROMIDE 0.5 MG/2.5 ML NEBU ONE (22:15)
[2019-07-09] MEDS ORDERED: predniSONE 10 MG TABLET PO ONE (22:15)
[2019-07-09] MEDS ORDERED: predniSONE 20 MG TABLET ONE (22:15)
--- NOTE | 2019-07-09 22:15 | NUR ---
Respiratory at bedside.
--- NOTE | 2019-07-09 23:39 | NUR ---
Patient discharged to home in stable conditon. Written and verbal after care instructions given. Patient verbalizes understanding of instructions. Pt ambulated out of ER with steady gait, no acute signs of distress, VSS, all belongings taken.
[2019-07-09 23:40] VITALS: BP 138/75
== END 2019-07-09 23:40 | disposition home or self-care (01) ==
LOC: ER 20:51
DX: J44.1 Chronic obstructive pulmonary disease with (acute) exacerbation (principal); J45.901 Unspecified asthma with (acute) exacerbation; R60.9 Edema, unspecified; F17.290 Nicotine dependence, other tobacco product, uncomplicated; Z60.2 Problems related to living alone; Z79.899 Other long term (current) drug therapy; Z79.82 Long term (current) use of aspirin
CPT/HCPCS: 94644; 99285; 99406; J7512; A4663; J3590

== ENCOUNTER 2019-07-31 10:00 | Emergency (ER) | payer MEDICAID, OTHER ==
[~2019-07-31] VITALS: Ht 165.1 cm; Wt 68.0 kg
[2019-07-31] MEDS ORDERED: methylPREDNISolone SOD SUCC 125 MG/2 ML VIAL IM ONE (10:30)
[2019-07-31] MEDS ORDERED: ALBUTEROL SULFATE 2.5 MG/3 ML NEBU NEB ONE (10:30)
[2019-07-31] MEDS ORDERED: IPRATROPIUM BROMIDE 0.5 MG/2.5 ML NEBU NEB ONE (10:30)
[2019-07-31] MEDS ORDERED: ALBUTEROL SULFATE 2.5 MG/3 ML NEBU ONE (10:31)
[2019-07-31] MEDS ORDERED: IPRATROPIUM BROMIDE 0.5 MG/2.5 ML NEBU ONE (10:31)
[2019-07-31] MEDS ORDERED: methylPREDNISolone SOD SUCC 125 MG/2 ML VIAL ONE (10:34)
--- NOTE | 2019-07-31 10:49 | NUR ---
PT ABLE TO TOLERATE BREATHING TREATMENT IM MEDS ORDERED O2SAT 98%
--- NOTE | 2019-07-31 12:20 | NUR ---
Patient discharged to home in stable conditon. Written and verbal after care instructions given. Patient verbalizes understanding of instructions. AMBULATORY W/ STABLE GAIT ALL BELONGINGS W/ PT
[2019-07-31 12:28] VITALS: BP 110/61
== END 2019-07-31 12:28 | disposition home or self-care (01) ==
LOC: ER 10:00
DX: J44.1 Chronic obstructive pulmonary disease with (acute) exacerbation (principal); F17.210 Nicotine dependence, cigarettes, uncomplicated; Z82.49 Family history of ischemic heart disease and other diseases of the circulatory system; Z79.82 Long term (current) use of aspirin; R60.0 Localized edema
CPT/HCPCS: 71045; 94644; 96372; 99285; J2930; A4663; J3590

== ENCOUNTER 2019-09-17 13:22 | Emergency (ER) | payer MEDICAID ==
[~2019-09-17] VITALS: Ht 162.6 cm; Wt 61.2 kg
--- NOTE | 2019-09-17 13:46 | NUR ---
ERMD AT BEDSIDE FOR HX AND PHYSICAL
[2019-09-17] MEDS ORDERED: ALBUTEROL SULFATE 2.5 MG/3 ML NEBU NEB ONE (14:00)
[2019-09-17] MEDS ORDERED: IPRATROPIUM BROMIDE 0.5 MG/2.5 ML NEBU NEB ONE (14:00)
[2019-09-17] MEDS ORDERED: methylPREDNISolone SOD SUCC 125 MG/2 ML VIAL IV ONE (14:00)
[2019-09-17] MEDS ORDERED: ALBUTEROL SULFATE 2.5 MG/3 ML NEBU ONE (14:00)
[2019-09-17] MEDS ORDERED: IPRATROPIUM BROMIDE 0.5 MG/2.5 ML NEBU ONE (14:00)
[2019-09-17] MEDS ORDERED: methylPREDNISolone SOD SUCC 125 MG/2 ML VIAL ONE (14:08)
--- NOTE | 2019-09-17 15:45 | NUR ---
pt able to tolerate breathing tx and iv meds. pt reports significant relief of sob Patient discharged to home in stable condition. Written and verbal after care instructions given. Patient verbalizes understanding of instructions. Stressed follow up or return to ER for worsening s/s. iv dc, dressed
[2019-09-17 16:53] VITALS: BP 138/89
== END 2019-09-17 15:35 | disposition home or self-care (01) ==
LOC: ER 13:22
DX: J45.901 Unspecified asthma with (acute) exacerbation (principal); F17.210 Nicotine dependence, cigarettes, uncomplicated; Z79.82 Long term (current) use of aspirin; Z79.899 Other long term (current) drug therapy
CPT/HCPCS: 94640; 99291; J2930; J3590

== ENCOUNTER 2019-09-18 16:03 | Emergency (ER) | payer MEDICAID ==
[~2019-09-18] VITALS: Ht 162.6 cm; Wt 54.0 kg
--- NOTE | 2019-09-18 16:40 | NUR ---
Patient discharged to home in stable condition. Written and verbal after care instructions given. Patient verbalizes understanding of instructions. Stressed follow up or return to ER for worsening s/s.
== END 2019-09-18 16:40 | disposition home or self-care (01) ==
LOC: ER 16:06
DX: Z76.0 Encounter for issue of repeat prescription (principal); J45.909 Unspecified asthma, uncomplicated; F17.210 Nicotine dependence, cigarettes, uncomplicated
CPT/HCPCS: A4663

== ENCOUNTER 2020-01-24 20:58 | Emergency (ER) | payer MEDICAID ==
[~2020-01-24] VITALS: Ht 162.6 cm; Wt 63.5 kg
[2020-01-24] MEDS ORDERED: ALBU8HFA4 INH (21:09)
[2020-01-24] MEDS ORDERED: ALBU1.25 IH (21:09)
[2020-01-24] MEDS ORDERED: IPRATROPIUM BROMIDE 0.5 MG/2.5 ML NEBU NEB ONE (21:30)
[2020-01-24] MEDS ORDERED: ALBUTEROL SULFATE 2.5 MG/3 ML NEBU NEB ONE (21:30)
[2020-01-24] MEDS ORDERED: methylPREDNISolone SOD SUCC 125 MG/2 ML VIAL IV ONE (21:30)
[2020-01-24] MEDS ORDERED: ALBUTEROL SULFATE 2.5 MG/3 ML NEBU ONE (21:41)
[2020-01-24] MEDS ORDERED: IPRATROPIUM BROMIDE 0.5 MG/2.5 ML NEBU ONE (21:42)
[2020-01-24] MEDS ORDERED: methylPREDNISolone SOD SUCC 125 MG/2 ML VIAL ONE (21:46)
[2020-01-24 22:02] LABS: BASOPHILS # (AUTO) 0.1 K/uL (0.0-8.0); BASOPHILS % (AUTO) 1.5 % (0.0-2.0); EOSINOPHILS # (AUTO) 0.3 K/uL (0.0-0.7); EOSINOPHILS % (AUTO) 4.1 % (0.0-7.0); HEMOGLOBIN 15.8 g/dL (10.9-14.3); LYMPHOCYTES # (AUTO) 1.5 K/uL (20.0-40.0); LYMPHOCYTES % (AUTO) 18.8 % (20.5-51.5); MEAN CORPUSCULAR HEMOGLOBIN 29.7 uug (24.7-32.8); MEAN CORPUSCULAR HGB CONC 33 g/dL (32.3-35.6); MEAN CORPUSCULAR VOLUME 90.1 fL (75.5-95.3); MONOCYTES # (AUTO) 0.8 K/uL (2.0-10.0); MONOCYTES % (AUTO) 9.8 % (0.0-11.0); NEUTROPHILS # (AUTO) 5.2 K/uL (1.8-8.9); NEUTROPHILS % (AUTO) 65.8 % (38.5-71.5); PLATELET COUNT (AUTO) 213 K/uL (179-408); RED BLOOD CELL COUNT(AUTO) 5.33 MIL/uL (3.63-4.92); WHITE BLOOD COUNT (AUTO) 7.9 K/uL (3.8-11.8)
[2020-01-24 22:05] LABS: POTASSIUM 4.6 mmol/L (3.5-5.1)
[2020-01-24 22:18] LABS: BILIRUBIN,DIRECT 0.2 mg/dL (0.0-0.2); BILIRUBIN,TOTAL 0.5 mg/dL (0.2-1.0); TOTAL PROTEIN, SERUM 6.6 g/dL (6.4-8.2)
[2020-01-25 00:02] VITALS: BP 149/92
== END 2020-01-25 00:04 | disposition left against medical advice (07) ==
LOC: ER 20:58
DX: R06.02 Shortness of breath (principal); F17.210 Nicotine dependence, cigarettes, uncomplicated; R00.0 Tachycardia, unspecified; R60.0 Localized edema; J45.909 Unspecified asthma, uncomplicated
CPT/HCPCS: 36415; 71045; 80048; 80076; 83880; 84484; 85025; 85379; 93005; 93970; 94640; 96374; 99285; 99406; J2930; 70030-TC; A4663; J3590

== ENCOUNTER 2020-03-07 22:48 | Emergency (ER) | payer MEDICAID ==
[~2020-03-07] VITALS: Ht 162.6 cm; Wt 63.5 kg
[~2020-03-07 22:48] MED LIST changes: +ALBU1.25 IH; +ALBU8HFA4 INH; -DOCU100C36 PO; -NAPR-1009 PO; -OXYB15TA19 PO; -PHEN-894 PO; -TRAZ-182 PO
--- NOTE | 2020-03-07 23:00 | NUR ---
Dr. Gonzalez at bedside for MSE.
[2020-03-07] MEDS ORDERED: predniSONE 20 MG TABLET ONE (23:09)
[2020-03-07] MEDS ORDERED: IPRATROPIUM BROMIDE 0.5 MG/2.5 ML NEBU ONE (23:15)
[2020-03-07] MEDS ORDERED: IPRATROPIUM BROMIDE 0.5 MG/2.5 ML NEBU NEB ONE (23:15)
[2020-03-07] MEDS ORDERED: predniSONE 20 MG TABLET PO ONE (23:15)
[2020-03-07] MEDS ORDERED: ALBUTEROL SULFATE 2.5 MG/3 ML NEBU ONE (23:15)
[2020-03-07] MEDS ORDERED: ALBUTEROL SULFATE 2.5 MG/3 ML NEBU NEB ONE (23:15)
--- NOTE | 2020-03-07 23:44 | NUR ---
Patient discharged to home in stable condition. Written and verbal after care instructions given. Patient verbalizes understanding of instructions. Stressed follow up or return to ER for worsening s/s. Patient ambulated out of ER with steady gait, no acute signs of distress, VSS, all belongings taken.
[2020-03-07 23:46] VITALS: BP 145/90
== END 2020-03-07 23:46 | disposition home or self-care (01) ==
LOC: ER 22:49
DX: J45.901 Unspecified asthma with (acute) exacerbation (principal); F17.210 Nicotine dependence, cigarettes, uncomplicated; Z79.82 Long term (current) use of aspirin
CPT/HCPCS: 94640; 99283; J7512; A4663; J3590